=== PATIENT | male | born 1970 | race Two or more races ===

== ENCOUNTER 2022-11-15 11:44 | Emergency (ER) | payer MEDICAID, OTHER ==
[~2022-11-15] VITALS: Ht 152.4 cm; Wt 76.6 kg
[2022-11-15 13:13] VITALS: BP 125/59
[2022-11-15] MEDS ORDERED: IBUP800T27 PO (13:55)
== END 2022-11-15 14:02 | disposition home or self-care (01) ==
LOC: ER 11:44
DX: S63.91XA Sprain of unspecified part of right wrist and hand, initial encounter (principal); S80.01XA Contusion of right knee, initial encounter; W01.0XXA Fall on same level from slipping, tripping and stumbling without subsequent striking against object, initial encounter; Y93.89 Activity, other specified; Y92.89 Other specified places as the place of occurrence of the external cause; Y99.8 Other external cause status
CPT/HCPCS: 73130